=== PATIENT | female | born 1940 | race Two or more races ===

== ENCOUNTER 2020-07-15 09:15 | Outpatient (CLI) | payer MEDICARE ==
[2020-07-15 10:21] LABS: BASOPHILS # (AUTO) 0.1 /CMM (0.0-0.2); BASOPHILS % (AUTO) 0.7 % (0.0-2.0); EOSINOPHILS % (AUTO) 1.8 % (0.0-6.0); HEMATOCRIT 45 % (33-45); HEMOGLOBIN 14.7 g/dL (11.5-14.8); LYMPHOCYTES # (AUTO) 1.1 /CMM (0.8-4.8); LYMPHOCYTES % (AUTO) 8.9 % (20.0-44.0); MEAN CORPUSCULAR HGB CONC 33 g/dl (31.0-36.0); MEAN CORPUSCULAR VOLUME 87 fL (82-100); MONOCYTES # (AUTO) 0.6 /CMM (0.1-1.30); NEUTROPHILS # (AUTO) 10.4 /CMM (1.8-8.9); NEUTROPHILS % (AUTO) 83.6 % (43.0-81.0); PLATELET COUNT (AUTO) 264 /CMM (150-450); RED BLOOD CELL COUNT(AUTO) 5.18 MIL/uL (4.0-5.2); WHITE BLOOD COUNT (AUTO) 12.4 K/uL (4.3-11.0)
[2020-07-15 10:58] LABS: ALBUMIN 3.4 g/dL (3.4-5.0); BILIRUBIN,TOTAL 0.6 mg/dL (0.2-1.0); CALCIUM, SERUM 8.7 mg/dL (8.5-10.1); CREATININE 0.8 mg/dL (0.6-1.3); POTASSIUM 4.5 mmol/L (3.5-5.1); TOTAL PROTEIN, SERUM 8.1 g/dL (6.4-8.2)
[2020-07-19 14:06] LABS: *AREA 13 IGE,TOTAL 95 IU/mL (6-495)
== END 2020-07-15 23:59 | disposition home or self-care (01) ==
LOC: MSC 09:15
PROVIDERS: ATTEND Internal Medicine
DX: K59.00 Constipation, unspecified (principal); R09.81 Nasal congestion; I11.0 Hypertensive heart disease with heart failure; I50.9 Heart failure, unspecified; I25.2 Old myocardial infarction; I48.91 Unspecified atrial fibrillation; Z79.01 Long term (current) use of anticoagulants; E11.9 Type 2 diabetes mellitus without complications; Z79.4 Long term (current) use of insulin; E03.9 Hypothyroidism, unspecified; M77.9 Enthesopathy, unspecified
CPT/HCPCS: 36415; 80053; 82785 ×2; 85025; G0463

== ENCOUNTER 2021-05-19 09:27 | Outpatient (CLI) | payer MEDICARE, OTHER ==
[2021-05-19 10:56] LABS: BASOPHILS # (AUTO) 0.1 K/uL (0.0-0.2); BASOPHILS % (AUTO) 0.6 % (0.0-2.0); HEMATOCRIT 38 % (33-45); HEMOGLOBIN 12.1 g/dL (11.5-14.8); LYMPHOCYTES # (AUTO) 0.9 K/uL (0.8-4.8); LYMPHOCYTES % (AUTO) 9.1 % (20.0-44.0); MEAN CORPUSCULAR HGB CONC 32 g/dl (31.0-36.0); MEAN CORPUSCULAR VOLUME 91 fL (82-100); MONOCYTES # (AUTO) 0.5 K/uL (0.1-1.30); MONOCYTES % (AUTO) 4.7 % (2.0-12.0); NEUTROPHILS # (AUTO) 8.7 K/uL (1.8-8.9); NEUTROPHILS % (AUTO) 83.6 % (43.0-81.0); PLATELET COUNT (AUTO) 300 K/uL (150-450); RED BLOOD CELL COUNT(AUTO) 4.16 MIL/uL (4.0-5.2); WHITE BLOOD COUNT (AUTO) 10.4 K/uL (4.3-11.0)
[2021-05-19 11:14] LABS: C-REACTIVE PROTEIN 0.7 mg/dL (0.0-0.9); CHOLESTEROL 129 mg/dL (<200); FREE T4 (FREE THYROXINE) 1.22 ng/dL (0.76-1.46); HDL CHOLESTEROL 55 mg/dL (40-60); LDL 62 mg/dL (0-99); TRIGLYCERIDES 120 mg/dL (30-150)
[2021-05-19 12:07] LABS: ALANINE AMINOTRANSFERASE 20 U/L (12-78); ALBUMIN 3.3 g/dL (3.4-5.0); ALKALINE PHOSPHATASE 125 U/L (46-116); ASPARTATE AMINOTRANSFERASE 23 U/L (15-37); BILIRUBIN,TOTAL 0.5 mg/dL (0.2-1.0); CALCIUM, SERUM 8.7 mg/dL (8.5-10.1); CARBON DIOXIDE 28 mmol/L (21-32); CHLORIDE 106 mmol/L (98-107); CREATININE 1.5 mg/dL (0.6-1.3); GLUCOSE 94 mg/dL (74-106); MAGNESIUM 2.6 mg/dL (1.8-2.4); PHOSPHORUS 3.9 mg/dL (2.5-4.9); POTASSIUM 4.9 mmol/L (3.5-5.1); SODIUM SERUM 140 mmol/L (136-145); TOTAL PROTEIN, SERUM 7.4 g/dL (6.4-8.2); UREA NITROGEN, BLOOD 40 mg/dL (7-18)
== END 2021-05-19 23:59 | disposition home or self-care (01) ==
LOC: MSC 09:27
PROVIDERS: ATTEND Internal Medicine
DX: F41.8 Other specified anxiety disorders (principal); G81.91 Hemiplegia, unspecified affecting right dominant side; I25.2 Old myocardial infarction; I11.0 Hypertensive heart disease with heart failure; I50.9 Heart failure, unspecified; K59.00 Constipation, unspecified; E11.40 Type 2 diabetes mellitus with diabetic neuropathy, unspecified; Z79.4 Long term (current) use of insulin; Z86.16 Personal history of COVID-19; R68.89 Other general symptoms and signs; I48.91 Unspecified atrial fibrillation; Z79.01 Long term (current) use of anticoagulants; E03.9 Hypothyroidism, unspecified; Z79.890 Hormone replacement therapy
CPT/HCPCS: 36415; 80053; 80061; 82306; 82607; 82746; 83036; 83735; 84100; 84439; 85025; 85652; 86140; G0463

== ENCOUNTER → 2021-05-21 | Outpatient (CLI) | payer MEDICARE, MEDICAID | END | disposition home or self-care (01) | LOC: CT 10:12 | PROVIDERS: ATTEND Internal Medicine | DX: M85.2 Hyperostosis of skull (principal) | CPT/HCPCS: 70450-TC ==

== ENCOUNTER → 2021-05-22 | Outpatient (CLI) | payer MEDICARE, MEDICAID | END | disposition home or self-care (01) | LOC: MSC 15:30 | PROVIDERS: ATTEND Internal Medicine | DX: F41.8 Other specified anxiety disorders (principal); G81.91 Hemiplegia, unspecified affecting right dominant side; E11.40 Type 2 diabetes mellitus with diabetic neuropathy, unspecified; Z79.4 Long term (current) use of insulin; K59.00 Constipation, unspecified; I25.2 Old myocardial infarction; I11.0 Hypertensive heart disease with heart failure; I50.9 Heart failure, unspecified; Z86.16 Personal history of COVID-19; I48.91 Unspecified atrial fibrillation; Z79.01 Long term (current) use of anticoagulants; R09.81 Nasal congestion; E03.9 Hypothyroidism, unspecified; Z79.890 Hormone replacement therapy; Z79.899 Other long term (current) drug therapy ==

== ENCOUNTER 2021-10-12 13:00 | Outpatient (CLI) | payer MEDICARE, OTHER | END 2021-10-12 23:59 | disposition home or self-care (01) | LOC: MSC 13:00 | PROVIDERS: ATTEND Internal Medicine | DX: J06.9 Acute upper respiratory infection, unspecified (principal); F32.A Depression, unspecified; K59.00 Constipation, unspecified; Z86.16 Personal history of COVID-19; I25.2 Old myocardial infarction; I11.0 Hypertensive heart disease with heart failure; I50.9 Heart failure, unspecified; I48.91 Unspecified atrial fibrillation; Z79.01 Long term (current) use of anticoagulants; E11.40 Type 2 diabetes mellitus with diabetic neuropathy, unspecified; Z79.4 Long term (current) use of insulin; E03.9 Hypothyroidism, unspecified; Z79.890 Hormone replacement therapy; Z79.899 Other long term (current) drug therapy ==

== ENCOUNTER → 2022-01-13 | Outpatient (CLI) | payer MEDICARE, OTHER | END | disposition home or self-care (01) | LOC: MSC 14:00 | PROVIDERS: ATTEND Internal Medicine | DX: R52 Pain, unspecified (principal); F41.8 Other specified anxiety disorders; E11.40 Type 2 diabetes mellitus with diabetic neuropathy, unspecified; Z79.4 Long term (current) use of insulin; K59.00 Constipation, unspecified; Z86.16 Personal history of COVID-19; I25.2 Old myocardial infarction; I11.0 Hypertensive heart disease with heart failure; I50.9 Heart failure, unspecified; R68.89 Other general symptoms and signs; I48.91 Unspecified atrial fibrillation; Z79.01 Long term (current) use of anticoagulants; E03.9 Hypothyroidism, unspecified; Z79.890 Hormone replacement therapy; Z79.899 Other long term (current) drug therapy ==

== ENCOUNTER 2022-04-29 09:10 | Outpatient (CLI) | payer MEDICARE, OTHER ==
[2022-04-29 12:26] LABS: C-REACTIVE PROTEIN 1.1 mg/dL (0.0-0.9); FREE T4 (FREE THYROXINE) 1.12 ng/dL (0.76-1.46); THYROID STIMULATING HORMONE 2.501 uIU/mL (0.358-3.74)
== END 2022-04-29 23:59 | disposition home or self-care (01) ==
LOC: MSC 09:10
PROVIDERS: ATTEND Internal Medicine
DX: M25.512 Pain in left shoulder (principal); I11.0 Hypertensive heart disease with heart failure; I50.9 Heart failure, unspecified; Z79.01 Long term (current) use of anticoagulants; I25.2 Old myocardial infarction; R13.10 Dysphagia, unspecified; F41.8 Other specified anxiety disorders; E11.40 Type 2 diabetes mellitus with diabetic neuropathy, unspecified; Z79.4 Long term (current) use of insulin; K59.00 Constipation, unspecified; Z86.16 Personal history of COVID-19; R68.89 Other general symptoms and signs; I48.91 Unspecified atrial fibrillation; E03.9 Hypothyroidism, unspecified; Z79.890 Hormone replacement therapy; Z79.899 Other long term (current) drug therapy
CPT/HCPCS: 73030; 85652; 36415; 84439; 84443; 82607; 86140; G0463

== ENCOUNTER → 2022-04-30 | Outpatient (CLI) | payer MEDICARE, OTHER | END | disposition home or self-care (01) | LOC: MSC 14:30 | PROVIDERS: ATTEND Internal Medicine | DX: M25.512 Pain in left shoulder (principal); R79.82 Elevated C-reactive protein (CRP); I11.0 Hypertensive heart disease with heart failure; I50.9 Heart failure, unspecified; Z79.01 Long term (current) use of anticoagulants; E11.40 Type 2 diabetes mellitus with diabetic neuropathy, unspecified; Z79.4 Long term (current) use of insulin; I25.2 Old myocardial infarction; I48.91 Unspecified atrial fibrillation; R13.10 Dysphagia, unspecified; F41.8 Other specified anxiety disorders; K59.00 Constipation, unspecified; Z86.16 Personal history of COVID-19; R68.89 Other general symptoms and signs; E03.9 Hypothyroidism, unspecified; Z79.890 Hormone replacement therapy; Z79.899 Other long term (current) drug therapy ==

== ENCOUNTER 2022-05-04 09:04 | Outpatient (CLI) | payer MEDICARE, OTHER | END 2022-05-04 23:59 | disposition home or self-care (01) | LOC: MSC 09:04 | PROVIDERS: ATTEND Anesthesiology | DX: M19.012 Primary osteoarthritis, left shoulder (principal); M54.16 Radiculopathy, lumbar region; M62.830 Muscle spasm of back; M40.299 Other kyphosis, site unspecified; G89.4 Chronic pain syndrome; Z95.0 Presence of cardiac pacemaker; Z79.01 Long term (current) use of anticoagulants; Z79.899 Other long term (current) drug therapy ==

== ENCOUNTER 2022-05-25 08:42 | Outpatient (CLI) | payer MEDICARE, OTHER | END 2022-05-25 23:59 | disposition home or self-care (01) | LOC: MSC 08:42 | PROVIDERS: ATTEND Anesthesiology | DX: M19.012 Primary osteoarthritis, left shoulder (principal); G89.4 Chronic pain syndrome; M54.50 Low back pain, unspecified; M62.830 Muscle spasm of back; M40.299 Other kyphosis, site unspecified | CPT/HCPCS: 96372; J1040; J3490 ==

== ENCOUNTER 2022-10-05 10:30 | Outpatient (CLI) | payer MEDICARE, OTHER | END 2022-10-05 23:59 | disposition home or self-care (01) | LOC: MSC 10:30 | PROVIDERS: ATTEND Internal Medicine | DX: K59.09 Other constipation (principal); R53.83 Other fatigue; G47.00 Insomnia, unspecified; R20.2 Paresthesia of skin; R79.82 Elevated C-reactive protein (CRP); I25.2 Old myocardial infarction; I11.0 Hypertensive heart disease with heart failure; I50.9 Heart failure, unspecified; Z79.01 Long term (current) use of anticoagulants; E11.40 Type 2 diabetes mellitus with diabetic neuropathy, unspecified; Z79.4 Long term (current) use of insulin; M25.512 Pain in left shoulder; I48.91 Unspecified atrial fibrillation; G81.91 Hemiplegia, unspecified affecting right dominant side; R13.10 Dysphagia, unspecified; F41.8 Other specified anxiety disorders; R68.89 Other general symptoms and signs; E03.9 Hypothyroidism, unspecified; Z79.890 Hormone replacement therapy; Z86.16 Personal history of COVID-19; Z79.899 Other long term (current) drug therapy ==

== ENCOUNTER 2022-10-26 09:00 | Outpatient (CLI) | payer MEDICARE, OTHER | END 2022-10-26 23:59 | disposition home or self-care (01) | LOC: MSC 09:00 | PROVIDERS: ATTEND Internal Medicine | DX: J06.9 Acute upper respiratory infection, unspecified (principal); K59.09 Other constipation; R53.83 Other fatigue; G47.00 Insomnia, unspecified; R20.2 Paresthesia of skin; R79.82 Elevated C-reactive protein (CRP); I25.2 Old myocardial infarction; I11.0 Hypertensive heart disease with heart failure; I50.9 Heart failure, unspecified; Z79.01 Long term (current) use of anticoagulants; E11.40 Type 2 diabetes mellitus with diabetic neuropathy, unspecified; Z79.4 Long term (current) use of insulin; M25.512 Pain in left shoulder; I48.91 Unspecified atrial fibrillation; G81.91 Hemiplegia, unspecified affecting right dominant side; R13.10 Dysphagia, unspecified; F41.8 Other specified anxiety disorders; R68.89 Other general symptoms and signs; E03.9 Hypothyroidism, unspecified; Z79.890 Hormone replacement therapy; Z86.16 Personal history of COVID-19; Z79.899 Other long term (current) drug therapy ==

== ENCOUNTER 2022-11-04 09:42 | Outpatient (CLI) | payer MEDICARE, OTHER ==
[2022-11-04 11:15] LABS: BASOPHILS % (AUTO) 0.4 % (0.0-2.0); EOSINOPHILS % (AUTO) 1.5 % (0.0-6.0); HEMATOCRIT 38 % (33-45); HEMOGLOBIN 12.4 g/dL (11.5-14.8); LYMPHOCYTES % (AUTO) 9.1 % (20.0-44.0); MEAN CORPUSCULAR HGB CONC 33 g/dl (31.0-36.0); MEAN CORPUSCULAR VOLUME 93 fL (82-100); MONOCYTES # (AUTO) 0.7 K/uL (0.1-1.30); MONOCYTES % (AUTO) 6.5 % (2.0-12.0); NEUTROPHILS # (AUTO) 8.6 K/uL (1.8-8.9); NEUTROPHILS % (AUTO) 82.5 % (43.0-81.0); PLATELET COUNT (AUTO) 275 K/uL (150-450); RED BLOOD CELL COUNT(AUTO) 4.06 MIL/uL (4.0-5.2); WHITE BLOOD COUNT (AUTO) 10.4 K/uL (4.3-11.0)
[2022-11-04 12:13] LABS: ALBUMIN 3.1 g/dL (3.4-5.0); BILIRUBIN,TOTAL 0.4 mg/dL (0.2-1.0); CALCIUM, SERUM 9.2 mg/dL (8.5-10.1); MAGNESIUM 2.5 mg/dL (1.8-2.4); PHOSPHORUS 4.2 mg/dL (2.5-4.9); POTASSIUM 4.4 mmol/L (3.5-5.1); TOTAL PROTEIN, SERUM 7.1 g/dL (6.4-8.2)
[2022-11-04 12:36] LABS: FREE T4 (FREE THYROXINE) 1.4 ng/dL (0.76-1.46); THYROID STIMULATING HORMONE 4.704 uIU/mL (0.358-3.74)
== END 2022-11-04 23:59 | disposition home or self-care (01) ==
LOC: MSC 09:42
PROVIDERS: ATTEND Internal Medicine
DX: J40 Bronchitis, not specified as acute or chronic (principal); J06.9 Acute upper respiratory infection, unspecified; R10.13 Epigastric pain; K59.09 Other constipation; R53.83 Other fatigue; G47.00 Insomnia, unspecified; R79.82 Elevated C-reactive protein (CRP); I25.2 Old myocardial infarction; I11.0 Hypertensive heart disease with heart failure; I50.9 Heart failure, unspecified; Z79.01 Long term (current) use of anticoagulants; E11.40 Type 2 diabetes mellitus with diabetic neuropathy, unspecified; Z79.4 Long term (current) use of insulin; M25.512 Pain in left shoulder; I48.91 Unspecified atrial fibrillation; G81.91 Hemiplegia, unspecified affecting right dominant side; R13.10 Dysphagia, unspecified; F41.8 Other specified anxiety disorders; R68.89 Other general symptoms and signs; E03.9 Hypothyroidism, unspecified; Z79.890 Hormone replacement therapy; Z86.16 Personal history of COVID-19; Z79.899 Other long term (current) drug therapy
CPT/HCPCS: 76700; 71046; 80061; 85025; 83735; 83036; 84100; 84439; 82746; 84443; 82607; 80053; 83880; G0463; 36415

== ENCOUNTER 2022-11-16 10:00 | Outpatient (CLI) | payer MEDICARE, OTHER | END 2022-11-16 23:59 | disposition home or self-care (01) | LOC: MSC 10:00 | PROVIDERS: ATTEND Internal Medicine | DX: R13.10 Dysphagia, unspecified (principal); E78.1 Pure hyperglyceridemia; E11.40 Type 2 diabetes mellitus with diabetic neuropathy, unspecified; Z79.4 Long term (current) use of insulin; R10.13 Epigastric pain; K59.09 Other constipation; R53.83 Other fatigue; G47.00 Insomnia, unspecified; R79.82 Elevated C-reactive protein (CRP); I25.2 Old myocardial infarction; I11.0 Hypertensive heart disease with heart failure; I50.9 Heart failure, unspecified; Z79.01 Long term (current) use of anticoagulants; I48.91 Unspecified atrial fibrillation; M25.512 Pain in left shoulder; G81.91 Hemiplegia, unspecified affecting right dominant side; F41.8 Other specified anxiety disorders; R68.89 Other general symptoms and signs; E03.9 Hypothyroidism, unspecified; Z79.890 Hormone replacement therapy; Z86.16 Personal history of COVID-19; Z79.899 Other long term (current) drug therapy ==

== ENCOUNTER 2023-03-31 09:01 | Outpatient (CLI) | payer MEDICARE, OTHER ==
[2023-03-31 11:25] LABS: C-REACTIVE PROTEIN 1.1 mg/dL (0.0-0.9); FREE T4 (FREE THYROXINE) 1.57 ng/dL (0.76-1.46); THYROID STIMULATING HORMONE 2.858 uIU/mL (0.358-3.74)
[2023-03-31 11:27] LABS: BASOPHILS # (AUTO) 0.1 K/uL (0.0-0.2); BASOPHILS % (AUTO) 0.5 % (0.0-2.0); HEMATOCRIT 39 % (33-45); HEMOGLOBIN 12.4 g/dL (11.5-14.8); LYMPHOCYTES # (AUTO) 1.1 K/uL (0.8-4.8); LYMPHOCYTES % (AUTO) 10.8 % (20.0-44.0); MEAN CORPUSCULAR HGB CONC 32 g/dl (31.0-36.0); MEAN CORPUSCULAR VOLUME 87 fL (82-100); MONOCYTES # (AUTO) 0.6 K/uL (0.1-1.30); NEUTROPHILS # (AUTO) 8.1 K/uL (1.8-8.9); NEUTROPHILS % (AUTO) 80.7 % (43.0-81.0); PLATELET COUNT (AUTO) 318 K/uL (150-450); RED BLOOD CELL COUNT(AUTO) 4.46 MIL/uL (4.0-5.2); WHITE BLOOD COUNT (AUTO) 10.1 K/uL (4.3-11.0)
[2023-03-31 11:36] LABS: ALBUMIN 3.4 g/dL (3.4-5.0); BILIRUBIN,TOTAL 0.7 mg/dL (0.2-1.0); CALCIUM, SERUM 9.6 mg/dL (8.5-10.1); PHOSPHORUS 3.3 mg/dL (2.5-4.9); POTASSIUM 3.5 mmol/L (3.5-5.1); TOTAL PROTEIN, SERUM 7.8 g/dL (6.4-8.2)
== END 2023-03-31 23:59 | disposition home or self-care (01) ==
LOC: MSC 09:01
PROVIDERS: ATTEND Internal Medicine
DX: R10.13 Epigastric pain (principal); K59.00 Constipation, unspecified; J39.2 Other diseases of pharynx; J30.9 Allergic rhinitis, unspecified; R53.1 Weakness; E78.1 Pure hyperglyceridemia; E11.40 Type 2 diabetes mellitus with diabetic neuropathy, unspecified; Z79.4 Long term (current) use of insulin; G47.00 Insomnia, unspecified; R79.82 Elevated C-reactive protein (CRP); I25.2 Old myocardial infarction; I11.0 Hypertensive heart disease with heart failure; I50.9 Heart failure, unspecified; Z79.01 Long term (current) use of anticoagulants; I48.91 Unspecified atrial fibrillation; F41.8 Other specified anxiety disorders; R68.89 Other general symptoms and signs; E03.9 Hypothyroidism, unspecified; Z79.890 Hormone replacement therapy; Z86.16 Personal history of COVID-19; Z79.899 Other long term (current) drug therapy
CPT/HCPCS: 80061; 85025; 83540; 83735; 83036; 84100; 85652; 84439; 82746; 84443; 82607; 80053; 82728; 86140; 82306; 83970; G0463; 36415

== ENCOUNTER 2023-03-31 10:25 | Outpatient (CLI) | payer MEDICARE, OTHER | END 2023-03-31 23:59 | disposition home or self-care (01) | LOC: CT 10:25 | PROVIDERS: ATTEND Internal Medicine | DX: J98.11 Atelectasis (principal); K86.89 Other specified diseases of pancreas; K57.30 Diverticulosis of large intestine without perforation or abscess without bleeding; I51.7 Cardiomegaly; M51.37 Other intervertebral disc degeneration, lumbosacral region; K86.1 Other chronic pancreatitis; N28.1 Cyst of kidney, acquired; R10.9 Unspecified abdominal pain ==

== ENCOUNTER 2023-05-18 14:30 | Outpatient (CLI) | payer MEDICARE, OTHER | END 2023-05-18 23:59 | disposition home or self-care (01) | LOC: MSC 14:30 | PROVIDERS: ATTEND Internal Medicine | DX: J06.9 Acute upper respiratory infection, unspecified (principal); J42 Unspecified chronic bronchitis; K75.3 Granulomatous hepatitis, not elsewhere classified; R74.8 Abnormal levels of other serum enzymes; R10.13 Epigastric pain; K59.00 Constipation, unspecified; E11.40 Type 2 diabetes mellitus with diabetic neuropathy, unspecified; Z79.4 Long term (current) use of insulin; E78.1 Pure hyperglyceridemia; G47.00 Insomnia, unspecified; R79.82 Elevated C-reactive protein (CRP); I25.2 Old myocardial infarction; I11.0 Hypertensive heart disease with heart failure; I50.9 Heart failure, unspecified; Z79.01 Long term (current) use of anticoagulants; I48.91 Unspecified atrial fibrillation; R53.1 Weakness; F41.8 Other specified anxiety disorders; G81.91 Hemiplegia, unspecified affecting right dominant side; E03.9 Hypothyroidism, unspecified; Z86.16 Personal history of COVID-19 ==

== ENCOUNTER 2023-06-07 10:15 | Outpatient (CLI) | payer MEDICARE, OTHER | END 2023-06-07 23:59 | disposition home or self-care (01) | LOC: MSC 10:15 | PROVIDERS: ATTEND Internal Medicine | DX: J06.9 Acute upper respiratory infection, unspecified (principal); J42 Unspecified chronic bronchitis; E87.1 Hypo-osmolality and hyponatremia; R13.10 Dysphagia, unspecified; K75.3 Granulomatous hepatitis, not elsewhere classified; R74.8 Abnormal levels of other serum enzymes; R10.13 Epigastric pain; K59.00 Constipation, unspecified; R53.1 Weakness; E78.1 Pure hyperglyceridemia; E11.40 Type 2 diabetes mellitus with diabetic neuropathy, unspecified; Z79.4 Long term (current) use of insulin; G47.00 Insomnia, unspecified; R79.82 Elevated C-reactive protein (CRP); I25.2 Old myocardial infarction; I11.0 Hypertensive heart disease with heart failure; I50.9 Heart failure, unspecified; Z79.01 Long term (current) use of anticoagulants; I48.91 Unspecified atrial fibrillation; F41.8 Other specified anxiety disorders; E03.9 Hypothyroidism, unspecified; Z86.16 Personal history of COVID-19 ==

== ENCOUNTER 2023-08-26 13:59 | Inpatient (IN) | payer MEDICARE, OTHER ==
[~2023-08-26] VITALS: Ht 142.2 cm; Wt 64.9 kg
[2023-08-26] MEDS ORDERED: KETOROLAC TROMETHAMINE 15 MG/ML VIAL ONE (14:51)
[2023-08-26] MEDS ORDERED: ONDANSETRON HCL/PF 4 MG/2 ML VIAL ONE (14:51)
[2023-08-26] MEDS ORDERED: PANTOPRAZOLE 40 MG VIAL ONE (14:51)
[2023-08-26] MEDS ORDERED: KETOROLAC TROMETHAMINE INJ 30 MG/ML VIAL IV ONE (15:00)
[2023-08-26] MEDS ORDERED: ONDANSETRON HCL/PF 4 MG/2 ML VIAL IVP ONE (15:00)
[2023-08-26] MEDS ORDERED: IV NS 0.9% 500 ML BAG IV ONE (15:00)
[2023-08-26] MEDS ORDERED: PANTOPRAZOLE 40 MG VIAL IV ONE (15:00)
[2023-08-26 15:07] LABS: BASOPHILS % (AUTO) 0.5 % (0.0-2.0); EOSINOPHILS # (AUTO) 0.1 K/uL (0.0-0.7); EOSINOPHILS % (AUTO) 1.1 % (0.0-6.0); HEMATOCRIT 33 % (33-45); HEMOGLOBIN 10.4 g/dL (11.5-14.8); LYMPHOCYTES # (AUTO) 0.6 K/uL (0.8-4.8); LYMPHOCYTES % (AUTO) 6.3 % (20.0-44.0); MEAN CORPUSCULAR HEMOGLOBIN 25 PG (26.0-33.0); MEAN CORPUSCULAR HGB CONC 31 g/dl (31.0-36.0); MEAN CORPUSCULAR VOLUME 81 fL (82-100); MONOCYTES # (AUTO) 0.5 K/uL (0.1-1.30); MONOCYTES % (AUTO) 5.4 % (2.0-12.0); NEUTROPHILS # (AUTO) 8.4 K/uL (1.8-8.9); NEUTROPHILS % (AUTO) 86.7 % (43.0-81.0); PLATELET COUNT (AUTO) 294 K/uL (150-450); RED BLOOD CELL COUNT(AUTO) 4.13 MIL/uL (4.0-5.2); WHITE BLOOD COUNT (AUTO) 9.7 K/uL (4.3-11.0)
[2023-08-26 15:19] LABS: CARBON DIOXIDE 25 mmol/L (21-32); CHLORIDE 107 mmol/L (98-107); CREATININE 1.2 mg/dL (0.6-1.3); GLUCOSE 283 mg/dL (74-106); POTASSIUM 4.3 mmol/L (3.5-5.1); SODIUM SERUM 139 mmol/L (136-145); UREA NITROGEN, BLOOD 32 mg/dL (7-18)
[2023-08-26 15:24] LABS: PARTIAL THROMBOPLASTIN TIME 24.8 SEC (24.3-34.3); PROTHROMBIN TIME 10.6 SECS (9.2-11.1)
[2023-08-26 15:25] LABS: ALANINE AMINOTRANSFERASE 23 U/L (12-78); ALBUMIN 2.7 g/dL (3.4-5.0); ALKALINE PHOSPHATASE 158 U/L (46-116); ASPARTATE AMINOTRANSFERASE 21 U/L (15-37); BILIRUBIN,DIRECT 0.2 mg/dL (0.0-0.2); BILIRUBIN,TOTAL 0.4 mg/dL (0.2-1.0); LIPASE 29 U/L (16-77); TOTAL PROTEIN, SERUM 6.4 g/dL (6.4-8.2)
[2023-08-26] MEDS ORDERED: HYDROMORPHONE 1 MG/1 ML DISP.SYRIN IV ONE (17:30)
[2023-08-26] MEDS ORDERED: INSU100V11 SQ (17:45)
[2023-08-26] MEDS ORDERED: FURO-144 PO (17:45)
[2023-08-26] MEDS ORDERED: PANT40TA2 PO (17:45)
[2023-08-26] MEDS ORDERED: MELA5TAB PO (17:45)
[2023-08-26] MEDS ORDERED: CARV6.252 PO (17:45)
[2023-08-26] MEDS ORDERED: SENN-261 PO (17:45)
[2023-08-26] MEDS ORDERED: APIX5TAB PO (17:45)
[2023-08-26] MEDS ORDERED: SACU1TAB4 PO (17:45)
[2023-08-26] MEDS ORDERED: ROSU5TAB PO (17:45)
[2023-08-26] MEDS ORDERED: HYDR-4303 PO (17:45)
[2023-08-26] MEDS ORDERED: FLUC100T8 PO (17:45)
[2023-08-26] MEDS ORDERED: INSU100V7 SQ (17:45)
[2023-08-26] MEDS ORDERED: HYDROMORPHONE 1 MG/1 ML DISP.SYRIN ONE (17:58)
[2023-08-26 18:58] LABS: APPEARANCE,URINE SLIGHTLY CLOUDY (CLEAR); BILIRUBIN,URINE NEGATIVE (NEGATIVE); BLOOD, URINE NEGATIVE Ery/uL (NEGATIVE); COLOR,URINE YELLOW (YELLOW); KETONES,URINE TRACE mg/dL (NEGATIVE); LEUKOCYTE ESTERASE ,URINE TRACE (NEGATIVE); NITRITE, URINE NEGATIVE (NEGATIVE); PROTEIN,URINE TRACE mg/dl (NEGATIVE); UGLUCOSE NEGATIVE (NEGATIVE); UROBILINOGEN,URINE 0.2 EU/dL (0.2)
[2023-08-26 19:04] LABS: ADD URINE CULTURE YES; BACTERIA,URINE 3+ /HPF (None Seen); RBC,URINE 0-2 /HPF (0-2); SQUAMOUS EPITHELIAL CELL,UR 0-2 /HPF (None Seen)
[2023-08-26] MEDS ORDERED: MAG HYDROX/AL HYDROX/SIMETH 30 ML UDC PO PRN (21:30)
[2023-08-26] MEDS ORDERED: DEXTROSE 50%-WATER 50 ML DISP.SYRIN IV PRN (21:30)
[2023-08-26] MEDS ORDERED: ACETAMINOPHEN 325 MG TABLET PO PRN (21:30)
[2023-08-26] MEDS ORDERED: ONDANSETRON HCL/PF 4 MG/2 ML VIAL IVP PRN (21:30)
[2023-08-26 22:00] VITALS: BP 115/52; TEMP 97.9; O2SAT 98
[2023-08-26] MEDS: INSULIN GLARGINE, 100 UNIT/ML CARTRIDGE SQ SCH (22:00)
[2023-08-26] MEDS: BLOOD SUGAR DIAGNOSTIC 1 EACH STRIP VI SCH (22:44)
[2023-08-26] MEDS: *INSULIN REGULAR(HUMULIN R)HUM 100 UNIT/ML VIAL SQ PRN (23:48)
[2023-08-27 02:02] VITALS: BP 141/82; TEMP 98; O2SAT 93
[2023-08-27] MEDS: HYDROCODONE/APAP 10/325MG TABLET PO PRN ×3 (02:18→16:04)
[2023-08-27 05:49] LABS: BASOPHILS # (AUTO) 0.1 K/uL (0.0-0.2); EOSINOPHILS # (AUTO) 0.2 K/uL (0.0-0.7); EOSINOPHILS % (AUTO) 2.5 % (0.0-6.0); HEMATOCRIT 32 % (33-45); HEMOGLOBIN 9.9 g/dL (11.5-14.8); LYMPHOCYTES # (AUTO) 0.8 K/uL (0.8-4.8); LYMPHOCYTES % (AUTO) 10.7 % (20.0-44.0); MEAN CORPUSCULAR HEMOGLOBIN 26 PG (26.0-33.0); MEAN CORPUSCULAR HGB CONC 31 g/dl (31.0-36.0); MEAN CORPUSCULAR VOLUME 82 fL (82-100); MONOCYTES # (AUTO) 0.6 K/uL (0.1-1.30); NEUTROPHILS # (AUTO) 5.5 K/uL (1.8-8.9); NEUTROPHILS % (AUTO) 76.8 % (43.0-81.0); PLATELET COUNT (AUTO) 240 K/uL (150-450); RED BLOOD CELL COUNT(AUTO) 3.86 MIL/uL (4.0-5.2); RED CELL DISTRIBUTION WIDTH 21.6 % (11.5-15.0); WHITE BLOOD COUNT (AUTO) 7.2 K/uL (4.3-11.0)
[2023-08-27] MEDS: BLOOD SUGAR DIAGNOSTIC 1 EACH STRIP VI SCH ×4 (06:19→21:38)
[2023-08-27] MEDS: INSULIN REGULAR, HUMAN 100 UNIT/ML 3 ML VIAL SQ PRN ×3 (06:19→17:06)
[2023-08-27 06:36] LABS: CALCIUM, SERUM 8.6 mg/dL (8.5-10.1); CARBON DIOXIDE 24 mmol/L (21-32); CHLORIDE 108 mmol/L (98-107); CREATININE 1.1 mg/dL (0.6-1.3); GLUCOSE 138 mg/dL (74-106); MAGNESIUM 2.3 mg/dL (1.8-2.4); PHOSPHORUS 3.6 mg/dL (2.5-4.9); POTASSIUM 4.2 mmol/L (3.5-5.1); SODIUM SERUM 139 mmol/L (136-145); UREA NITROGEN, BLOOD 31 mg/dL (7-18)
[2023-08-27] MEDS ORDERED: PANTOPRAZOLE 40 MG TABLET.DR PO SCH (07:30)
[2023-08-27 07:54] LABS: EOSINOPHILS % (MANUAL) 3 % (0-4); LYMPHOCYTES % (MANUAL) 13 % (16-48); MONOCYTES % (MANUAL) 7 % (0-11.0); NEUTROPHILS % (MANUAL) 77 (42-76); PLATELET ESTIMATE ADEQUATE
[2023-08-27 07:55] LABS: ANISOCYTOSIS 1+
[2023-08-27 08:00] VITALS: BP 114/65; TEMP 97.9; O2SAT 99
[2023-08-27] MEDS: PANTOPRAZOLE 40 MG TABLET.DR PO SCH (08:07)
[2023-08-27] MEDS ORDERED: SACUBITRIL PO SCH (09:00)
[2023-08-27] MEDS ORDERED: VALSARTAN PO SCH (09:00)
[2023-08-27] MEDS: FUROSEMIDE 40 MG TABLET PO SCH (09:40)
[2023-08-27] MEDS: SENNOSIDES 8.6 MG TABLET PO SCH (09:40)
[2023-08-27] MEDS: CARVEDILOL 6.25 MG TABLET PO SCH ×2 (09:41→17:00)
[2023-08-27] MEDS: APIXABAN 5 MG TABLET PO SCH ×2 (09:43→20:42)
[2023-08-27] MEDS: CEPHALEXIN MONOHYDRATE 250 MG CAPSULE PO SCH ×2 (12:13→20:40)
[2023-08-27 16:00] VITALS: BP 106/47; TEMP 98.3; O2SAT 96
[2023-08-27] MEDS: MAGNESIUM HYDROXIDE 30 ML UDC PO PRN (16:13)
[2023-08-27] MEDS: VALSARTAN PO SCH (17:00)
[2023-08-27] MEDS: SACUBITRIL PO SCH (17:00)
[2023-08-27] MEDS: GABAPENTIN 300 MG CAPSULE PO SCH (17:26)
[2023-08-27 20:00] VITALS: BP 96/59; TEMP 97.4; O2SAT 94
[2023-08-27] MEDS: INSULIN GLARGINE, 100 UNIT/ML CARTRIDGE SQ SCH (21:09)
[2023-08-27] MEDS: *INSULIN REGULAR(HUMULIN R)HUM 100 UNIT/ML VIAL SQ PRN (22:06)
[2023-08-28 04:00] VITALS: BP 101/53; TEMP 97.4; O2SAT 98
[2023-08-28] MEDS: CEPHALEXIN MONOHYDRATE 250 MG CAPSULE PO SCH ×3 (04:45→20:29)
[2023-08-28] MEDS: BLOOD SUGAR DIAGNOSTIC 1 EACH STRIP VI SCH ×4 (06:47→21:37)
[2023-08-28] MEDS: INSULIN REGULAR, HUMAN 100 UNIT/ML 3 ML VIAL SQ PRN ×4 (06:48→21:36)
[2023-08-28] MEDS: SENNOSIDES 8.6 MG TABLET PO SCH (08:27)
[2023-08-28] MEDS: PANTOPRAZOLE 40 MG TABLET.DR PO SCH (08:27)
[2023-08-28] MEDS: FUROSEMIDE 40 MG TABLET PO SCH (08:28)
[2023-08-28] MEDS: GABAPENTIN 300 MG CAPSULE PO SCH ×3 (08:28→17:08)
[2023-08-28] MEDS: APIXABAN 5 MG TABLET PO SCH ×2 (08:34→20:28)
[2023-08-28] MEDS: CARVEDILOL 6.25 MG TABLET PO SCH ×2 (08:35→17:00)
[2023-08-28] MEDS: VALSARTAN PO SCH ×2 (08:36→17:00)
[2023-08-28] MEDS: SACUBITRIL PO SCH ×2 (08:36→17:00)
[2023-08-28] MEDS: MAGNESIUM HYDROXIDE 30 ML UDC PO PRN (13:18)
[2023-08-28 16:00] VITALS: BP 93/55; TEMP 98.2; TEMP 98.3; O2SAT 94
[2023-08-28 20:00] VITALS: BP 95/57; TEMP 97.6; O2SAT 97
[2023-08-28] MEDS: INSULIN GLARGINE, 100 UNIT/ML CARTRIDGE SQ SCH (21:36)
[2023-08-29] MEDS: CEPHALEXIN MONOHYDRATE 250 MG CAPSULE PO SCH ×3 (04:03→20:30)
[2023-08-29] MEDS: BLOOD SUGAR DIAGNOSTIC 1 EACH STRIP VI SCH ×4 (06:30→21:53)
[2023-08-29] MEDS: INSULIN REGULAR, HUMAN 100 UNIT/ML 3 ML VIAL SQ PRN ×3 (06:31→17:06)
[2023-08-29 07:00] VITALS: BP 97/64; TEMP 98.1; O2SAT 97
[2023-08-29] MEDS: SENNOSIDES 8.6 MG TABLET PO SCH (08:22)
[2023-08-29] MEDS: PANTOPRAZOLE 40 MG TABLET.DR PO SCH (08:22)
[2023-08-29] MEDS: GABAPENTIN 300 MG CAPSULE PO SCH ×3 (08:22→16:35)
[2023-08-29] MEDS: CARVEDILOL 6.25 MG TABLET PO SCH ×2 (08:24→16:36)
[2023-08-29] MEDS: VALSARTAN PO SCH ×2 (08:25→16:35)
[2023-08-29] MEDS: SACUBITRIL PO SCH ×2 (08:25→16:35)
[2023-08-29] MEDS: FUROSEMIDE 40 MG TABLET PO SCH (08:25)
[2023-08-29] MEDS: APIXABAN 5 MG TABLET PO SCH ×2 (08:26→20:32)
[2023-08-29 16:00] VITALS: BP 110/62; TEMP 97.7; O2SAT 97
[2023-08-29] MEDS: HYDROCODONE/APAP 10/325MG TABLET PO PRN (16:40)
[2023-08-29] MEDS: MAGNESIUM HYDROXIDE 30 ML UDC PO PRN (16:40)
[2023-08-29 20:00] VITALS: BP 100/60; TEMP 97.7; O2SAT 97
[2023-08-29] MEDS: *INSULIN REGULAR(HUMULIN R)HUM 100 UNIT/ML VIAL SQ PRN (21:56)
[2023-08-29] MEDS: INSULIN GLARGINE, 100 UNIT/ML CARTRIDGE SQ SCH (21:56)
[2023-08-30] MEDS: CEPHALEXIN MONOHYDRATE 250 MG CAPSULE PO SCH (04:40)
[2023-08-30] MEDS: BLOOD SUGAR DIAGNOSTIC 1 EACH STRIP VI SCH ×2 (06:37→11:52)
[2023-08-30] MEDS: INSULIN REGULAR, HUMAN 100 UNIT/ML 3 ML VIAL SQ PRN ×2 (06:40→11:54)
[2023-08-30] MEDS: PANTOPRAZOLE 40 MG TABLET.DR PO SCH (07:39)
[2023-08-30 08:00] VITALS: BP 92/51; TEMP 98.1; O2SAT 95
[2023-08-30 08:41] VITALS: BP 92/57
[2023-08-30] MEDS: CARVEDILOL 6.25 MG TABLET PO SCH (08:41)
[2023-08-30] MEDS: VALSARTAN PO SCH (08:42)
[2023-08-30] MEDS: FUROSEMIDE 40 MG TABLET PO SCH (08:42)
[2023-08-30] MEDS: SACUBITRIL PO SCH (08:42)
[2023-08-30] MEDS: GABAPENTIN 300 MG CAPSULE PO SCH ×2 (08:46→13:08)
[2023-08-30] MEDS: SENNOSIDES 8.6 MG TABLET PO SCH (08:46)
[2023-08-30] MEDS: APIXABAN 5 MG TABLET PO SCH (08:47)
[2023-08-30] MEDS ORDERED: LEVOFLOXACIN (250MG) 250 MG TABLET PO SCH (14:00)
[2023-08-30] MEDS: HYDROCODONE/APAP 10/325MG TABLET PO PRN (15:56)
[2023-08-31] MEDS ORDERED: HYDR-3976 PO (12:24)
[2023-08-31] MEDS ORDERED: LEVO500T90 PO (12:24)
== END 2023-08-30 16:57 | disposition home health service (06) | DRG 543 ==
LOC: ER 13:59 → MED 21:03
PROVIDERS: ADMIT Internal Medicine; ATTEND Internal Medicine
DX: M48.56XA Collapsed vertebra, not elsewhere classified, lumbar region, initial encounter for fracture (principal); D68.69 Other thrombophilia; E87.20 Acidosis, unspecified; N17.9 Acute kidney failure, unspecified; N39.0 Urinary tract infection, site not specified; I50.32 Chronic diastolic (congestive) heart failure; I31.39 Other pericardial effusion (noninflammatory); K59.00 Constipation, unspecified; E11.9 Type 2 diabetes mellitus without complications; E86.0 Dehydration; I11.0 Hypertensive heart disease with heart failure; E78.5 Hyperlipidemia, unspecified; I48.0 Paroxysmal atrial fibrillation; N28.1 Cyst of kidney, acquired; Z95.0 Presence of cardiac pacemaker; Z79.01 Long term (current) use of anticoagulants; Z90.710 Acquired absence of both cervix and uterus; E27.8 Other specified disorders of adrenal gland; M48.061 Spinal stenosis, lumbar region without neurogenic claudication; Z79.4 Long term (current) use of insulin
CPT/HCPCS: 36415; 71045-TC; 80048-TC; 80076-TC; 81001; 82962-TC; 83605-TC; 83690-TC; 83735-TC; 84100-TC; 84484-TC; 85025-TC; 85730-TC; 87040-TC; 87086-TC; 97110-TC; 97116-TC; 97530-TC; C9113; G0378; J1170; J1815; J1885; J2405; J7040

== ENCOUNTER 2023-09-20 08:30 | Day surgery (SDC) | payer MEDICARE, OTHER ==
[~2023-09-20 08:30] MED LIST: APIX5TAB PO; CARV6.252 PO; HYDR-3976 PO; HYDR-4303 PO; INSU100V11 SQ; INSU100V7 SQ; LEVO500T90 PO; MELA5TAB PO; PANT40TA2 PO; ROSU5TAB PO; SACU1TAB4 PO; SENN-261 PO
[2023-09-20] MEDS ORDERED: IOHEXOL 50 ML IV ONE (08:54)
[2023-09-20] MEDS ORDERED: BETA ACET/BET NA PHOS MDV 6 MG/ML VIAL ONE (08:54)
[2023-09-20] MEDS ORDERED: ANESTHESIA TRAY IN PYXIS 1 EA TRAY MC ONE (08:54)
[2023-09-20] MEDS ORDERED: BUPIVACAINE 0.25% 75 MG/30 ML VIAL ONE (08:54)
[2023-09-20] MEDS ORDERED: LIDOCAINE HCL/MPF 1% 30 ML VIAL IJ ONE (08:54)
[2023-09-20] MEDS ORDERED: methylPREDNISolone ACETATE 80 MG/ML VIAL ONE (08:55)
[2023-09-20] MEDS ORDERED: ONDANSETRON HCL/PF 4 MG/2 ML VIAL ONE (11:22)
== END 2023-09-20 12:00 | disposition home or self-care (01) ==
LOC: DS 08:30
PROVIDERS: ATTEND Anesthesiology
DX: M47.26 Other spondylosis with radiculopathy, lumbar region (principal); I10 Essential (primary) hypertension; E11.9 Type 2 diabetes mellitus without complications; D64.9 Anemia, unspecified; E66.01 Morbid (severe) obesity due to excess calories; Z98.890 Other specified postprocedural states; Z79.899 Other long term (current) drug therapy
CPT/HCPCS: 62323; 72110; 82962 ×2; J2704; J3490 ×3; J2405; J7030; Q9967; J0702; J1040